=== PATIENT | female | born 1950 | race Caucasian/White ===

== ENCOUNTER → 2016-09-25 09:19 | Day surgery (SDC) | payer MEDICARE, BC ==
--- NOTE | 2016-09-18 09:50 | HP ---
PREOPERATIVE HISTORY AND PHYSICAL: DATE OF SURGERY/ADMISSION: 09/25/16 [facility] DATE OF OFFICE VISIT/ENCOUNTER: 09/17/16 ATTENDING SURGEON: Evie Jefferson MD PROCEDURE: Left wrist mass excision. CHIEF COMPLAINT: Mass, left wrist. HISTORY OF PRESENT ILLNESS: This is a 66-year-old female complaining of a mass on the radial aspect of her left wrist present since July 2016. She denies any injury. She does not know that it has particularly fluctuated in size. It has become painful enough that she would like to have it removed. She occasionally gets a sharp pain with the extension of the wrist. She has seen Dr. Rothman at [place] and has failed conservative treatment including Aleve, a wrist brace, and aspiration by Dr. Rothman. She is interested in pursuing more permanent treatment for this cyst at this time in the form of an excision. PAST MEDICAL HISTORY: Migraine headaches. PAST SURGICAL HISTORY: 1. Tubal ligation. 2. Left ring finger mass excision. 3. Right medial thigh cosmetic repair. CURRENT MEDICATIONS: Imitrex p.r.n. ALLERGIES: LEVAQUIN, causes a rash. FAMILY MEDICAL HISTORY: Significant for prostate cancer. 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 She denies tobacco use and recreational drug use. Does admit to alcohol use on occasion. REVIEW OF SYSTEMS: General: Negative for fevers, chills, or night sweats. No known anesthesia problems. HEENT: Negative for headache, lightheadedness, or syncopal episodes. Integumentary: Negative for abrasions, lesions, or open wounds. Cardiothoracic: Negative for chest pain, palpitations, or edema. Negative for hypertension. Pulmonary: Negative for shortness of breath with exertion, chronic cough, or COPD. GI: Negative for nausea, vomiting, diarrhea , constipation, or GERD. : Negative for nocturia, urinary frequency, urgency , history of UTIs, or kidney problems. Musculoskeletal: Positive for current complaint. Negative for chronic or intermittent back pain or history of fracture. Neurological: Negative for paresthesias, numbness, history of seizure , stroke, or epilepsy. Endocrine: Negative for diabetes or thyroid issues. Hematologic: Negative for easy bruising, anemia, excessive bleeding, or history of DVT. Infectious Disease: Negative for history of MRSA, hepatitis C, or HIV. PHYSICAL EXAMINATION GENERAL: A well-developed, well nourished, 66-year-old female, in no acute distress. VITAL SIGNS: Height 5 feet 4 inches, weight 141 pounds, pulse rate 76, and blood pressure 132/86. HEENT: Normocephalic, atraumatic. Pupils are equal, round, and reactive to light and accommodation. Extraocular movements are intact. NECK: Supple. No palpable lymph nodes. Throat is clear. PULMONARY: Lungs are clear to auscultation bilaterally. No wheezes, rales, or rhonchi. CARDIOVASCULAR: Regular rate and rhythm. S1 and S2. No murmurs, rubs, or gallops. No edema. ABDOMEN: Positive bowel sounds, soft, nontender. NEUROLOGICAL: Alert and oriented x3. Cranial nerves II through X11 were intact. Sensation is intact to light touch. MUSCULOSKELETAL: On exam of her left wrist, she has a small pea-size cyst-like mass on the radial aspect. It is firm, soft, mobile, tender with palpation, and increased pain with wrist extension. Skin is intact. She has a negative Tinel' s over the cyst and a negative Arun test. Neurovascular function is intact. IMAGING STUDIES: X-rays of the left wrist showed no acute findings or osseous abnormalities. IMPRESSION: Cyst left wrist. PLAN/RECOMMENDATIONS: The patient is scheduled to undergo a left wrist mass excision with Dr. Jefferson on 09/25/16. A prescription for Ultracet was e-scribed to the patient's pharmacy for postoperative pain management. We will plan on seeing her back in office for followup in 10 to 14 days postop. FOSTER MORALES [id number]/[facility] #: [id number] CASEY
[~2016-09-25 09:19] MED LIST: Buffered Lidocaine 1% SYRIN* 3 ML/SYR SYRINGE INTRADERM ONE; Lidocaine 1% INJ* 10 MG/ML 30 ML SDV ONE; Midazolam* 1 MG/ML 2 ML VIAL (2 MG) ONE; fentaNYL* 50 MCG/ML 2 ML VIAL (100 MCG VIAL) ONE
[2016-09-25 12:22] VITALS: BP 135/71
--- NOTE | 2016-09-26 02:31 | OP ---
DATE OF OPERATION: 09/25/[address] [facility] DATE OF : 52 SURGEON: Evie Jefferson MD ECONOMIC CONSULTANT: FOSTER Bahena ANESTHESIOLOGIST: Josué Ortiz MD ANESTHESIA: Local, MAC. PRE-OP DIAGNOSIS: Left wrist ganglion. POST-OP DIAGNOSIS: Left wrist ganglion. OPERATIVE PROCEDURE: Left wrist ganglion excision. INDICATIONS: Opal is a 66-year-old woman with a painful cyst at the radial styloid of her left wrist. She presents for removal. ESTIMATED BLOOD LOSS: Zero. TOURNIQUET TIME: 10 minutes. DESCRIPTION OF PROCEDURE: The patient was brought to the operating room was given a sedation anesthetic and a local infiltration of 10 cc of 1% plain lidocaine. The skin of her left hand and forearm was prepped and draped in the usual sterile fashion. The hand and forearm were exsanguinated and tourniquet elevated to 250 mmHg. A longitudinal incision was made centered over the radial styloid. We dissected through the subcutaneous tissue down to the first dorsal compartment. Branches of the radial sensory nerves were retracted by the engineer second assistant, Dav Oshea. The first dorsal compartment was incised longitudinally, completely releasing the APL and EPB tendons, and the ganglion cyst emanating from the tendon sheath was removed and sent for pathology. The wound was irrigated and the skin edges were reapproximated with 4-0 nylon suture. The wound was dressed with Xeroform, 4x4's, Webril, and an Yonathan wrap. The patient tolerated the procedure well and was brought to the recovery room in good condition. [id number]/[facility] #: [id number] [facility] HOSPITALCharly
== END | disposition home or self-care (01) ==
LOC: OREAST 09:19
PROVIDERS: ATTEND Orthopaedic Surgery
DX: M67.432 Ganglion, left wrist (principal)
CPT/HCPCS: 88304; J2001; J2250; J3010